=== PATIENT | female | born 1985 | race African-American/Black ===

== ENCOUNTER 2017-11-07 05:05 | Emergency (ER) | payer OTHER ==
[~2017-11-07] VITALS: Ht 170.2 cm; Wt 99.8 kg
[2017-11-07 05:12] VITALS: BP 116/75
[2017-11-07] MEDS ORDERED: TRAMADOL 50 MG50 MG PO (06:14)
[2017-11-07] MEDS ORDERED: CIPROFLOXACIN500 M1 PO (06:14)
[2017-11-07] MEDS ORDERED: FLAGYL500 MG PO (06:14)
== END 2017-11-07 06:35 | disposition home or self-care (01) ==
LOC: ER 05:05
DX: N75.1 Abscess of Bartholin's gland (principal)